=== PATIENT | male | born 1945 | race Two or more races ===

== ENCOUNTER 2022-01-21 06:12 | Inpatient (IN) | payer OTHER ==
[2022-01-17 10:23] LABS: Basophils # (auto) 0 10 ^3/uL (0-0.2); Basophils % (auto) 0.6 % (0.0-2.0); Eosinophils # (auto) 0.2 10 ^3/uL (0-0.8); Eosinophils % (auto) 2.8 % (0.0-7.0); Hematocrit 42.1 % (41.0-53.0); Hemoglobin 14.1 g/dL (13.5-17.5); Lymphocytes # (auto) 1.7 10 ^3/uL (0.4-5.4); Lymphocytes % (auto) 28.4 % (10.0-50.0); Mean Corpuscular Hemoglobin 29.8 pg (28.0-32.0); Mean Corpuscular Hgb Conc. 33.4 g/dL (32.0-36.0); Mean Corpuscular Volume 89.3 fL (80.0-100.0); Monocytes # (auto) 0.7 10 ^3/uL (0-1.3); Monocytes % (auto) 11.9 % (0.0-12.0); Neutrophils # (auto) 3.3 10 ^3/uL (1.6-8.6); Neutrophils % (auto) 56.3 % (37.0-80.0); Red Blood Cells 4.71 10^6/uL (4.5-5.90); Red Cell Distribution Width 13.1 % (11.8-14.3); White Blood Cell 5.9 10^3/uL (4.4-10.8)
[2022-01-17 10:25] LABS: Urine Bacteria NONE SEEN /hpf (None Seen); Urine Blood 3+ /uL (Negative); Urine Mucus FEW (None Seen); Urine Specific Gravity 1.018 (1.001-1.035); Urine WBC 6 /hpf (0 - 3)
[2022-01-17 10:41] LABS: Albumin 3.7 g/dL (3.4-5.0); Calcium 9.1 mg/dL (8.5-10.1); Potassium 4.1 mmol/L (3.5-5.1)
[2022-01-17 10:46] LABS: BUN/Creatinine Ratio 18.2; Bilirubin, Total 0.7 mg/dL (0.2-1.0); Total Protein 6.8 g/dL (6.4-8.2)
[2022-01-17 12:06] LABS: INR 1.01 (0.9-1.15); Partial Thromboplastin Time 27.9 sec (24.6-33.4)
[2022-01-21] VITALS (13 sets, daily range): BP systolic 83–116; BP diastolic 44–66
[~2022-01-21] VITALS: Ht 172.7 cm; Wt 81.2 kg
[~2022-01-21 06:12] MED LIST: ACET-1080 PO; ATO40T PO; CARV3.1240 PO; CLOP75TA28 PO; ENAL10TA88 PO
[2022-01-21] MEDS ORDERED: BUPIVACAINE W/ EPINEPH 0.25% INJ 50ML MDV ONE (06:36)
[2022-01-21] MEDS ORDERED: VANCOMYCIN HCL 1000 MG VL ONE (06:40)
[2022-01-21] MEDS ORDERED: KETOROLAC TROMETH 30 MG/ML 1ML VIAL ONE (06:40)
[2022-01-21] MEDS ORDERED: TRANEXAMIC ACID 20 ML ONE (06:40)
[2022-01-21] MEDS ORDERED: CLINDAMYCIN 900MG IV 50 ML IV ONE (07:06)
[2022-01-21] MEDS ORDERED: TETRACAINE 1% INJ 2 ML VIAL IJ ONE (07:23)
[2022-01-21] MEDS ORDERED: MIDAZOLAM HCL 2MG/2ML 2ml VIAL (1mg/ml) ONE (07:26)
[2022-01-21] MEDS ORDERED: fentaNYL CITRATE 100 MCG/2 ML VL ONE (07:26)
[2022-01-21] MEDS ORDERED: MORPHINE SULF PF 5 MG/10 ML VIAL ONE (07:26)
[2022-01-21] MEDS ORDERED: PROPOFOL 10 MG/ML 20 ML IV ONE (07:32)
[2022-01-21] MEDS ORDERED: DexAMETHasone SOD PHOS 10MG/1ML VIAL INJ ONE (07:32)
[2022-01-21] MEDS ORDERED: ONDANSETRON HCL 4 MG/2 ML VIAL IV PRN ×2 (08:45→10:45)
[2022-01-21] MEDS ORDERED: HYDROmorphone HCL 2 MG/ML VL/or syr IV PRN ×2 (08:45→11:30)
[2022-01-21] MEDS ORDERED: NALOXONE HCL 0.4 MG/ML VIAL IV PRN (08:45)
[2022-01-21] MEDS ORDERED: DexAMETHasone SOD PHOS 10MG/1ML VIAL INJ IV PRN (08:45)
[2022-01-21] MEDS ORDERED: ePHEDrine SULFATE 50 MG/ML AMP IV PRN (08:45)
[2022-01-21] MEDS ORDERED: NALBUPHINE HCL 10 MG/1ml INJECTION SUBCUT ONE (08:45)
[2022-01-21] MEDS ORDERED: MIDAZOLAM HCL 2MG/2ML 2ml VIAL (1mg/ml) IV PRN (08:45)
[2022-01-21] MEDS ORDERED: LABETALOL HCL 5 MG/ML 4ML SYRINGE IV PRN (08:45)
[2022-01-21] MEDS ORDERED: oxyCODONE HCL 5MG TAB PO PRN (11:30)
[2022-01-21] MEDS: SODIUM CHLORIDE 0.9% 1,000 ML IV SCH ×2 (14:54→20:23)
[2022-01-21] MEDS: ACETAMINOPHEN 325 MG TAB PO SCH ×2 (15:03→18:00)
[2022-01-21] MEDS: CLINDAMYCIN 600MG IV 50 ML IV SCH ×2 (15:21→21:47)
[2022-01-21] MEDS ORDERED: SODIUM CHLORIDE 0.9% 1,000 ML IV ONE (17:45)
[2022-01-21] MEDS: PREGABALIN 25 MG CAP PO SCH (21:48)
[2022-01-22] VITALS (16 sets, daily range): BP systolic 92–158; BP diastolic 43–90
[2022-01-22] MEDS: ACETAMINOPHEN 325 MG TAB PO SCH ×4 (00:01→17:20)
[2022-01-22] MEDS: SODIUM CHLORIDE 0.9% 1,000 ML IV SCH ×3 (03:30→16:18)
[2022-01-22 06:59] LABS: Basophils # (auto) 0 10 ^3/uL (0-0.2); Basophils % (auto) 0.3 % (0.0-2.0); Eosinophils # (auto) 0.1 10 ^3/uL (0-0.8); Eosinophils % (auto) 0.6 % (0.0-7.0); Hematocrit 27.5 % (41.0-53.0); Hemoglobin 9.7 g/dL (13.5-17.5); Lymphocytes # (auto) 1.9 10 ^3/uL (0.4-5.4); Lymphocytes % (auto) 21.1 % (10.0-50.0); Mean Corpuscular Hemoglobin 31.7 pg (28.0-32.0); Mean Corpuscular Hgb Conc. 35.2 g/dL (32.0-36.0); Mean Corpuscular Volume 90.2 fL (80.0-100.0); Monocytes # (auto) 1.6 10 ^3/uL (0-1.3); Monocytes % (auto) 17.2 % (0.0-12.0); Neutrophils # (auto) 5.6 10 ^3/uL (1.6-8.6); Neutrophils % (auto) 60.8 % (37.0-80.0); Nucleated Red Blood Cells % 0.1 %; Red Blood Cells 3.05 10^6/uL (4.5-5.90); Red Cell Distribution Width 13.2 % (11.8-14.3); White Blood Cell 9.2 10^3/uL (4.4-10.8)
[2022-01-22 07:20] LABS: BUN/Creatinine Ratio 34.8; Calcium 8.2 mg/dL (8.5-10.1); Potassium 4.3 mmol/L (3.5-5.1)
[2022-01-22] MEDS: PREGABALIN 25 MG CAP PO SCH ×2 (09:16→21:36)
[2022-01-22] MEDS: APIXABAN 2.5 MG TAB PO SCH ×2 (09:17→21:35)
[2022-01-23] MEDS: ACETAMINOPHEN 325 MG TAB PO SCH ×4 (00:05→20:13)
[2022-01-23] MEDS: SODIUM CHLORIDE 0.9% 1,000 ML IV SCH ×3 (03:30→20:12)
[2022-01-23 05:00] VITALS: BP 130/65
[2022-01-23 09:00] VITALS: BP 113/67
[2022-01-23] MEDS: PREGABALIN 25 MG CAP PO SCH ×2 (09:56→21:37)
[2022-01-23] MEDS: APIXABAN 2.5 MG TAB PO SCH ×2 (09:56→21:37)
[2022-01-23 13:00] VITALS: BP 110/55
[2022-01-23 17:00] VITALS: BP 114/57
[2022-01-23] MEDS: oxyCODONE HCL 5MG TAB PO PRN (20:13)
[2022-01-23 22:00] VITALS: BP 120/49
[2022-01-24] MEDS: SODIUM CHLORIDE 0.9% 1,000 ML IV SCH ×3 (03:44→18:09)
[2022-01-24 05:00] VITALS: BP 111/55
[2022-01-24] MEDS: ACETAMINOPHEN 325 MG TAB PO SCH ×5 (05:22→23:55)
[2022-01-24 08:32] VITALS: BP 132/63
[2022-01-24] MEDS: APIXABAN 2.5 MG TAB PO SCH ×2 (09:10→21:05)
[2022-01-24] MEDS: PREGABALIN 25 MG CAP PO SCH ×2 (09:11→21:07)
[2022-01-24 13:00] VITALS: BP 128/62
[2022-01-24 16:41] VITALS: BP 108/53
[2022-01-24 22:00] VITALS: BP 107/49
[2022-01-25] MEDS: oxyCODONE HCL 5MG TAB PO PRN (01:58)
[2022-01-25] MEDS: SODIUM CHLORIDE 0.9% 1,000 ML IV SCH ×3 (03:24→19:43)
[2022-01-25 05:00] VITALS: BP 157/98
[2022-01-25] MEDS: ACETAMINOPHEN 325 MG TAB PO SCH ×4 (06:03→21:59)
[2022-01-25 09:00] VITALS: BP 129/65
[2022-01-25] MEDS: APIXABAN 2.5 MG TAB PO SCH ×2 (09:32→21:58)
[2022-01-25] MEDS: PREGABALIN 25 MG CAP PO SCH ×2 (09:32→21:58)
[2022-01-25 13:00] VITALS: BP 137/60
[2022-01-25 16:52] VITALS: BP 104/54
[2022-01-25 22:00] VITALS: BP 129/61
[2022-01-26] MEDS: SODIUM CHLORIDE 0.9% 1,000 ML IV SCH ×3 (04:30→19:30)
[2022-01-26 04:48] VITALS: BP 154/83
[2022-01-26] MEDS: ACETAMINOPHEN 325 MG TAB PO SCH ×3 (05:54→18:00)
[2022-01-26 09:00] VITALS: BP 133/65
[2022-01-26] MEDS: PREGABALIN 25 MG CAP PO SCH ×2 (10:07→22:38)
[2022-01-26] MEDS: APIXABAN 2.5 MG TAB PO SCH ×2 (10:07→22:39)
[2022-01-26 13:00] VITALS: BP 121/65
[2022-01-26] MEDS: oxyCODONE HCL 5MG TAB PO PRN (13:32)
[2022-01-26 17:00] VITALS: BP 121/56
[2022-01-26] MEDS ORDERED: diphenhdrAMINE HCL 25 MG CAP PO PRN (21:00)
[2022-01-26 22:00] VITALS: BP 116/60
[2022-01-27] MEDS: ACETAMINOPHEN 325 MG TAB PO SCH ×3 (00:26→12:54)
[2022-01-27 05:00] VITALS: BP 114/92
[2022-01-27 08:30] VITALS: BP 135/68
[2022-01-27] MEDS: PREGABALIN 25 MG CAP PO SCH (10:38)
[2022-01-27] MEDS: APIXABAN 2.5 MG TAB PO SCH (10:38)
[2022-01-27 12:30] VITALS: BP 128/68
[2022-01-27 15:18] VITALS: BP 128/68
== END 2022-01-27 16:49 | DRG 470 ==
LOC: SUR 06:12 → TELE 10:52 → TELE-WESTW 15:30
PROVIDERS: ADMIT Orthopaedic Surgery; ATTEND Orthopaedic Surgery
PROC: 8E0YXBF Computer Assisted Procedure of Lower Extremity, With Fluoroscopy (ICD-10-PCS; 2022-01-21)
PROC: 0SRB04Z Replacement of Left Hip Joint with Ceramic on Polyethylene Synthetic Substitute, Open Approach (ICD-10-PCS; principal; 2022-01-21 07:41)
DX: M16.12 Unilateral primary osteoarthritis, left hip (principal); I25.10 Atherosclerotic heart disease of native coronary artery without angina pectoris; I10 Essential (primary) hypertension; Z20.822 Contact with and (suspected) exposure to COVID-19; Z88.0 Allergy status to penicillin
CPT/HCPCS: 36415; 72170; 73502; 76000; 80048; 80053; 81001; 85025; 85610; 85730; 86850; 86900; 86901; 87426; 97110; 97116; 97163; 97530; A4565; G0378; J1100; J1885; J2250; J2405; J2704; J3490